=== PATIENT | male | born 1985 | race Caucasian/White ===

== ENCOUNTER → 2019-10-09 | Outpatient (CLI) | payer OTHER ==
[~2019-10-09] MED LIST: OMNIPAQUE 350 MG/ML, 100ML BOTTLE ONE; methadone
== END | disposition home or self-care (01) ==
LOC: CFH 14:11
PROVIDERS: ATTEND Nurse Practitioner
DX: K76.0 Fatty (change of) liver, not elsewhere classified (principal); N28.1 Cyst of kidney, acquired
CPT/HCPCS: 74170; 76700; Q9967